=== PATIENT | male | born 2000 | race African-American/Black ===

== ENCOUNTER 2022-04-23 21:20 | Emergency (ER) | payer MEDICAID ==
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
[2022-04-24] MEDS ORDERED: ACETAMINOPHEN 500 MG TAB PO ONE (06:09)
[2022-04-24] MEDS ORDERED: IBUPROFEN 600 MG TAB PO ONE (06:09)
[2022-04-24 07:50] VITALS: BP 124/66
== END 2022-04-24 07:48 | disposition home or self-care (01) ==
LOC: ED 21:20
DX: S39.012A Strain of muscle, fascia and tendon of lower back, initial encounter (principal); S50.812A Abrasion of left forearm, initial encounter; M62.838 Other muscle spasm; V89.2XXA Person injured in unspecified motor-vehicle accident, traffic, initial encounter; Y93.89 Activity, other specified; Y92.89 Other specified places as the place of occurrence of the external cause; Y99.8 Other external cause status
CPT/HCPCS: 99282